=== PATIENT | female | born 1940 ===

== ENCOUNTER 2019-05-10 07:30 | Inpatient (IN) | payer MEDICARE ==
[~2019-05-10 07:30] MED LIST: Acetaminophen TAB* 325 MG PO ONE; Buffered Lidocaine 1% SYRIN* 1 ML/SYRINGE INTRADERM ONE; Famotidine IV* 10 MG/ML 2 ML (20 mg) IV ONE; Gabapentin CAP(*) 300 MG PO ONE; Lactated Ringers 1000 ML Bag* 1,000 ML IV SCH; Tranexamic Acid 1,000 MG in NS 0.9% 50 ML* (outpatient use) IV SCH; celeCOXIB CAP* 200 MG PO ONE
--- OUTSIDE RECORDS SUMMARY | 2019-05-10 11:44 | XMS REPORT | Continuity of Care Document ---
:1940 External Reference #:[id number] Author Name Tiffany Long M.D. (transmitted by agent of provider Patria Ann) Address [address] [place] [id number] Care Team Providers Name Role Phone lAan Lopez MD - Internal Medicine Care Team Information Game Agent Rambo Deluna MD - Family Care Team Information Game Agent Medicine Problems Active Problems Provider Date Hypothyroidism Onset: 08/13/2012 Blood chemistry abnormal Onset: 08/13/2012 Hemorrhage of rectum and anus Onset: 08/13/2012 Gynecologic examination Onset: 08/13/2012 Disorder of skin Onset: 08/13/2012 Localized, primary osteoarthritis Tiffany Long M.D. Onset: 04/01/2019 Social History Type Date Description Comments Sex Unknown ETOH Use Rarely consumes alcohol Tobacco Use Reviewed: 01/10/17 Patient has never smoked 10/07/14 Recreational Drug Use Denies Drug Use Smoking Status Reviewed: 04/01/19 Patient has never smoked 10/07/14 Exercise Type/Frequency Exercises regularly walks Allergies, Adverse Reactions, Alerts Description No Known Drug Allergies Medications Active Medications SIG Qnty Indications Ordering Provider Date Levothyroxine Sodium 1 by mouth 30tabs Rambo 06/30/2015 50mcg every day MD Regi Tablets Multi For Her once a day Unknown Tablets Aleve 1 tab by mouth Unknown 220mg Tablets as needed Ibuprofen 2 tabs by mouth Unknown 200mg Tablets as needed Aspirin Adult take 2 tabs by Unknown 325mg Tablets mouth as needed Immunizations CPT Code Status Date Vaccine Lot # [id number] Given 07/11/2018 Fluzone High Dose 65068 Given 07/03/2017 Fluzone High Dose 36635 Given 06/02/2016 Fluzone High Dose 77778 Given 06/24/2015 Pneumococcal Conjugate Vaccine 13 Valent For Intramuscular Use 43138 Given 06/24/2015 Fluzone High Dose 32981 Given 06/23/2014 Fluzone High Dose 11942 Given 06/20/2013 Fluzone High Dose 51299 Given 04/19/2012 Pneumonia Vaccine 99710 Given 04/19/2012 Fluzone High Dose Vital Signs Date Vital Result Comment 04/01/2019 1:32pm Height 57.50 inches 4'9.50" Weight 114.00 lb Heart Rate 78 /min BP Systolic 124 mmHg BP Diastolic 72 mmHg Respiratory Rate 12 /min Pain Level 4 BMI (Body Mass Index) 24.2 kg/m2 03/19/2019 11:34am Height 57.50 inches 4'9.50" Weight 115.00 lb Heart Rate 66 /min BP Systolic Sitting 132 mmHg BP Diastolic Sitting 86 mmHg Respiratory Rate 12 /min no resp difficulties Body Temperature 99.0 F Pain Level 4 O2 % BldC Oximetry 98 % BMI (Body Mass Index) 24.5 kg/m2 Results Description No Information Available Procedures Date Code Description Status 03/19/2019 84851 Rad Exam; Both Knees, Standing Ap Completed 07/25/2017 [id number] Mammogram Completed Medical Devices Description No Information Available Encounters Type Date Location Provider Dx Diagnosis Office Visit 03/19/2019 Orthopedic Ethan Clark, M17.12 Unilateral primary 11:30a [facility] AT [facility] left knee M17.11 Unilateral primary osteoarthritis, right knee M25.561 Pain in right knee M25.562 Pain in left knee Office Visit 11/08/2018 10:00a [employer] Primary THERESE Perez E03.9 Hypothyroidism, Care unspecified M19.90 Unspecified osteoarthritis, unspecified site Assessments Date Code Description Provider 04/01/2019 M17.0 Bilateral primary osteoarthritis of knee Tiffany Long M.D. 04/01/2019 M25.561 Pain in right knee Tiffany Long M.D. 04/01/2019 M25.562 Pain in left knee Tiffany Long M.D. 04/01/2019 M25.462 Effusion, left knee Tiffany Long M.D. 04/01/2019 M25.461 Effusion, right knee Tiffany Long M.D. 03/19/2019 M17.12 Unilateral primary osteoarthritis, left knee Ethan Clark MD 03/19/2019 M17.11 Unilateral primary osteoarthritis, right knee Ethan Clark MD 03/19/2019 M25.561 Pain in right knee Ethan Clark MD 03/19/2019 M25.562 Pain in left knee Ethan Clark MD 11/08/2018 E03.9 Hypothyroidism, unspecified THERESE Perez 11/08/2018 M19.90 Unspecified osteoarthritis, unspecified site THERESE Perez Plan of Treatment Future Appointment(s):04/29/2019 9:00 am - Tiffany Long M.D. at [facility]05/13/2019 9:00 am - THERESE Perez at [facility] Primary Care2018 - Tiffany Long M.D.M17.0 Bilateral primary osteoarthritis of kneeFollow up :Follow up: 7-10 days before sowhvdgN61.561 Pain in right kneeM25.562 Pain in left kneeM25.462 Effusion, left kneeM25.461 Effusion, right knee Functional Status Functional Condition Comment Date Status Bifocal glasses 01/29/2014 Active Partial upper dentures Active Mental Status Description No Information Available Referrals Description No Information Available
--- OUTSIDE RECORDS SUMMARY | 2019-05-10 11:44 | XMS REPORT | Continuity of Care Document ---
:1940 External Reference #:[id number] Author Name Tiffany Long M.D. (transmitted by agent of provider Patria Ann) Address [address] [place] [id number] Care Team Providers Name Role Phone Alan Lopez MD - Internal Medicine Care Team Information Balance Truing Inspector [phone] Rambo Deluna MD - Family Care Team Information Balance Truing Inspector Medicine Tiffany Long M.D. - Adult Care Team Information Balance Truing Inspector [phone] Reconstructive Orthopaedic Surgery Ethan Clark MD - Orthopaedic Care Team Information Balance Truing Inspector Surgery Rambo Ochoa MD - Ophthalmology Care Team Information Balance Truing Inspector Problems Active Problems Provider Date Hypothyroidism Onset: [...] Use Denies Drug Use Smoking Status Reviewed: 04/29/19 Patient has never smoked 10/07/14 Exercise Type/Frequency Exercises regularly walks Allergies, Adverse Reactions, Alerts Description No Known Drug Allergies Medications Active Medications SIG Qnty Indications Ordering Provider Date Levothyroxine Sodium 1 by mouth 30tabs Rambo 06/30/2015 50mcg every day MD Regi Tablets Multi For Her once a day Unknown Tablets Aleve 1 tab by mouth Unknown 220mg Tablets as needed Aspirin Adult take 2 tabs by Unknown 325mg Tablets mouth as needed Immunizations CPT Code Status Date Vaccine Lot # [id number] Given 07/11/2018 Fluzone High Dose 34486 Given 07/03/2017 Fluzone High Dose 84854 Given 06/02/2016 Fluzone High Dose 04726 Given 06/24/2015 Pneumococcal Conjugate Vaccine 13 Valent For Intramuscular Use 38620 Given 06/24/2015 Fluzone High Dose 82620 Given 06/23/2014 Fluzone High Dose 65028 Given 06/20/2013 Fluzone High Dose 81771 Given 04/19/2012 Pneumonia Vaccine 72776 Given 04/19/2012 Fluzone High Dose Vital Signs Date Vital Result Comment 04/29/2019 8:51am Height 58.6 inches 4'10.60" Weight 115.00 lb Heart Rate 78 /min BP Systolic 122 mmHg BP Diastolic 86 mmHg Respiratory Rate 16 /min Body Temperature 97.0 F Pain Level 4 BMI (Body Mass Index) 23.5 kg/m2 04/25/2019 10:01am Height 58.6 inches 4'10.60" Weight 114.31 lb BP Systolic Sitting 110 mmHg BP Diastolic Sitting 70 mmHg Respiratory Rate 12 /min Body Temperature 98.8 F BMI (Body Mass Index) 23.4 kg/m2 Results Test Date Facility Test Result H/L Range Note Basic Metabolic 04/25/2019 [facility] Sodium 140 mmol/L Normal 135-145 Panel [address] [place] [address] [phone] Potassium 4.8 mmol/L Normal 3.5-5.0 Chloride 104 mmol/L Normal 101-111 Co2 Carbon Dioxide 31 mmol/L Normal 22-32 Anion Gap 5 mmol/L Normal 2-11 Glucose 74 mg/dL Normal 70-100 Blood Urea Nitrogen 13 mg/dL Normal 6-24 Creatinine 0.85 mg/dL Normal 0.51-0.95 BUN/Creatinine Ratio 15.3 Normal 8-20 Calcium 9.9 mg/dL Normal 8.6-10.3 Egfr Non- 64.9 >60 Egfr 78.5 >60 1 CBC Auto 04/25/2019 [facility] White Blood 6.4 10^3/uL Normal 3.5-10.[address] [place] [address] [phone] Red Blood Count 4.93 10^6/uL High 3.70-4.87 Hemoglobin 14.8 g/dL Normal 12.0-16.0 Hematocrit 43 % Normal 35-47 Mean Corpuscular Volume 87 fL Normal 80-97 Mean Corpuscular Hemoglobin 30 pg Normal 27-31 Mean Corpuscular HGB Conc 35 g/dL Normal 31-36 Red Cell Distribution Width 14 % Normal 10-15 Platelet Count 210 10^3/uL Normal 150-450 Mean Platelet Volume 8.9 fL Normal 7.4-10.4 Abs Neutrophils 3.6 10^3/uL Normal 1.5-7.7 Abs Lymphocytes 2.1 10^3/uL Normal 1.0-4.8 Abs Monocytes 0.5 10^3/uL Normal 0-0.8 Abs Eosinophils 0.1 10^3/uL Normal 0-0.6 Abs Basophils 0.0 10^3/uL Normal 0-0.2 Abs Nucleated RBC 0.0 10^3/uL Granulocyte % 56.8 % Lymphocyte % 33.3 % Monocyte % 7.4 % Eosinophil % 2.1 % Basophil % 0.4 % Nucleated Red Blood Cells % 0.1 Inr/Protime 04/25/2019 [facility] Inr 0.97 Normal 0.82-1.[address] [place] [address] [phone] Laboratory test 04/25/2019 [facility] Partial 36.8 Normal 26.0 -38.[address] [place] [address] Time PTT [phone] Urine Culture 04/25/2019 [facility] Urine SEE RESULT 3, [address] Culture BELOW Sensitivities [place], [place] [id number] [phone] Order 04/25/2019 [employer] In-House EKG <pending> 1 Because ethnic data is not always readily available, this report includes an eGFR for both -Americans and non- Americans. The National Kidney Disease Education Program (NKDEP) does not endorse the use of the MDRD equation for patients that are not between the ages of 18 and 70, are , have extremes of body size, muscle mass, or nutritional status, or are non- or non-. According to the National Kidney Foundation, irrespective of diagnosis, the stage of the disease is based on the level of kidney function: Stage Description GFR(mL/min/1.73 m(2)) 1 Kidney damage with normal or decreased GFR 90 2 Kidney damage with mild decrease in GFR 60-89 3 Moderate decrease in GFR 30-59 4 Severe decrease in GFR 15-29 5 Kidney failure <15 (or dialysis) 2 Standard intensity warfarin therapeutic range: 2.0-3.0 High intensity warfarin therapeutic range: 2.5-3.5 3 [id number] 4 SEE RESULT BELOW Name: CANDY JUAREZ : [address]: Daphne SALEH Acct: [id number] Unit: [id number] AGE: 79 Location: [facility] Re04/25/19 SEX: F Status: REG REF SPEC: [id number] JANESSA: 04/25/19-[address]: Daphne SALEH REQ: [id number] RECD: 04/25/19334 STATUS: COMP _ SOURCE: URINE SPDESC: ORDERED: Urine Culture COMMENTS: [id number] Urine Source: Random Procedure Result Reported Site Urine Culture Final 04/27/19- 1200 ML Organism 1 STAPHYLOCOCCUS AUREUS [place] Count 10-25,000 (Moderate) CFU/ML Organism 2 NORMAL GENE [place] Count 1-10,000 (Few) CFU/ML 1. STAPHYLOCOCCUS AUREUS [facility] RX --------- ------ Penicillin >=0.5 R Gentamicin <=0.5 S Linezolid 2 S Nitrofurantoin <=16 S Oxacillin <=0.25 S * Quinupristin/Dalfopristin <=0.25 S Rifampin <=0.5 S Tetracycline <=1 S Doxycycline - Deduced S * Minocycline - Deduced S Trimethoprim/Sulfamethoxazole <=10 S Vancomycin 1 S Imipenem-Deduced S * Ampicillin/Sulbactam-Deduced S Cefazolin-Deduced S CONTINUED ON NEXT PAGE DEPARTMENT OF PATHOLOGY, [address] [place] [address] Emre Rojas M.D. Director ANTONIETA # [id number] Patient: CANDY JUAREZ [id number] (Continued) Specimen: [id number] Collected: 04/25/19 Received: 04/25/19 (Continued) Procedure Result Reported Site Urine Culture Final (continued) * These antibiotics are not available in the [facility] Formulary Contact the Microbiology Department for any additional antibiotic reporting. * ML - Main Lab . END OF REPORT DEPARTMENT OF PATHOLOGY, [address] [place] [address] Emre Rojas M.D. Director [facility] # [id number] Procedures Date Code Description Status 04/25/2019 42457 EKG Tracing & Interpretation Completed 03/19/2019 91502 Rad Exam; Both Knees, Standing Ap Completed 07/25/2017 [id number] Mammogram Completed Medical Devices Description No Information Available Encounters Type Date Location Provider Dx Diagnosis Office Visit 04/01/2019 Orthopedic Tiffany Long, M17.0 Bilateral primary 1:30p Services Of [facility] Patrick osteoarthritis of knee M25.561 Pain in right knee M25.562 Pain in left knee M25.462 Effusion, left knee M25.461 Effusion, right knee Office Visit 03/19/2019 Orthopedic Ethan Caceres M17.12 Unilateral primary 11:30a Services Of Montse Clark MD osteoarthritis, left AT [place] knee M17.11 Unilateral primary osteoarthritis, right knee M25.561 Pain in right knee M25.562 Pain in left knee Office Visit 11/08/2018 10:00a [employer] Primary THERESE Perez E03.9 Hypothyroidism, Care unspecified M19.90 Unspecified osteoarthritis, unspecified site Assessments Date Code Description Provider 04/29/2019 Z01.818 Encounter for other preprocedural examination Tiffany Long M.D. 04/29/2019 M17.0 Bilateral primary osteoarthritis of knee Tiffany Long M.D. 04/29/2019 M25.562 Pain in left knee Tiffany Long M.D. 04/29/2019 M25.462 Effusion, left knee Tiffany Long M.D. 04/25/2019 Z01.818 Encounter for other preprocedural examination THEERSE Perez 04/25/2019 M17.0 Bilateral primary osteoarthritis of knee THERESE Perez 04/25/2019 M25.562 Pain in left knee THERESE Perez 04/25/2019 M25.462 Effusion, left knee THERESE Perez 04/25/2019 E03.9 Hypothyroidism, unspecified THERESE Perez 04/01/2019 M17.0 Bilateral primary osteoarthritis of knee [...] site THERESE Perez Plan of Treatment Future Appointment(s):08/26/2019 9:00 am - THERESE Perez at [facility] 7:30 am - Tom Alaniz PA-C at [facility]2018 7:30 am - Tiffany Long M.D. at [facility]04/29/2019 - Tiffany Long M.D.Z01.818 Encounter for other preprocedural xwweaycjjwcH01.0 Bilateral primary osteoarthritis of kneeM25.562 Pain in left kneeFollow up: Follow up: to the ORM25.462 Effusion, left knee Functional Status Functional Condition Comment Date Status Bifocal glasses 01/29/2014 Active Partial upper dentures Active Mental Status Description No Information Available Referrals Description No Information Available
--- OUTSIDE RECORDS SUMMARY | 2019-05-10 11:44 | XMS REPORT | Continuity of Care Document ---
:1940 External Reference #:[id number] Author Name Alfredo Kendrick Care Team Providers Name Role Phone Rambo Deluna MD Care Team Information Doctor Assistant Unavailable Payers Date Identification Numbers Payment Provider Subscriber Policy Number: [id number] [employer] Evangelina Rodriguez PayID: [id number] [address] [address] Attn: [place] [address] Effective: 2013 Policy Number: [id number] [employer] Evangelina Rodriguez Expires: 2019 Group Name: Medicare [address] [address] PayID: [id number] Attn: [place] [address] Problems Active Problems Provider Date Hypothyroidism Onset: 08/13/2012 Blood chemistry abnormal Onset: 08/13/2012 Hemorrhage of rectum and anus Onset: 08/13/2012 Gynecologic examination Onset: 08/13/2012 Disorder of skin Onset: 08/13/2012 Family History Date Family Member(s) Observation Comments Father due to MvA () Mother due to Natural Causes () Social History Type Date Description Comments Sex Unknown Marital Status Lives With Alone Pets 2 dogs Occupation Retired Hand Dominance Left-handed ETOH Use Rarely consumes alcohol Tobacco Use Reviewed: 01/10/17 Patient has never smoked 10/07/14 Recreational Drug Use Denies Drug Use Smoking Status Reviewed: 11/08/18 Patient has never smoked 10/07/14 Exercise Type/Frequency [...] by Unknown 325mg Tablets mouth as needed History Medications Amoxicillin 1 by mouth twice 20tabs J06.9 Rambo 06/18/2018 - 875mg a day MD Regi 07/11/2018 Tablets Fluconazole 1 by mouth every 1tabs B37.9 Rambo 04/30/2018 - 150mg day MD Regi 06/18/2018 Tablets Clotrimazole/Betamet apply two 15units L30.9 Rambo 10/31/2017 - hasone Dipropionate timesdaily as MD Regi 06/18/2018 directed 1-0.05% Cream Azithromycin 2 tablets day 6tabs J01.90 Rambo 01/10/2017 - 250mg one then one MD Regi 07/03/2017 Tablets tablet day2 thru day 5 Levothyroxine Sodium take 1 tablet by 30tabs Rambo 12/20/2012 - mouth once daily MD Regi 06/30/2015 25mcg Tablets Synthroid 1 po qd 30tabs 244.8 Rambo 04/19/2012 - 25mcg MD Regi 06/20/2013 Tablets Tobramycin-Dexametha place 1 drop Unknown - sone into right eye 10/21/2015 0.3-0.1% four times a day Suspension Erythromycin Apply Thin Strip Unknown - 5mg/GM To ALL Four 10/21/2015 Ointment Eyelid Margins Every Night AT Bedtime Immunizations CPT Code Status Date Vaccine Lot # [id number] Given 07/11/2018 Fluzone High Dose 35315 Given 07/03/2017 Fluzone High Dose 84836 Given 06/02/2016 Fluzone High Dose 10409 Given 06/24/2015 Pneumococcal Conjugate Vaccine 13 Valent For Intramuscular Use 06771 Given 06/24/2015 Fluzone High Dose 22222 Given 06/23/2014 Fluzone High Dose 32645 Given 06/20/2013 Fluzone High Dose 65185 Given 04/19/2012 Pneumonia Vaccine 83190 Given 04/19/2012 Fluzone High Dose Vital Signs Date Vital Result Comment 03/19/2019 11:34am Height 57.50 inches 4'9.50" Weight 115.00 lb Heart Rate 66 /min BP Systolic Sitting 132 mmHg BP Diastolic Sitting 86 mmHg Respiratory Rate 12 /min no resp difficulties Body Temperature 99.0 F Pain Level 4 O2 % BldC Oximetry 98 % BMI (Body Mass Index) 24.5 kg/m2 11/08/2018 10:05am Weight 115.00 lb BP Systolic Sitting 90 mmHg BP Diastolic Sitting 40 mmHg 07/11/2018 10:28am Weight 115.00 lb 06/18/2018 10:18am Weight 115.00 lb Heart Rate 72 /min BP Systolic 90 mmHg BP Diastolic 60 mmHg Body Temperature 97.2 F 04/30/2018 1:48pm Weight 114.00 lb BP Systolic 100 mmHg BP Diastolic 48 mmHg 10/31/2017 9:00am Weight 114.00 lb BP Systolic 100 mmHg BP Diastolic 50 mmHg 07/03/2017 1:09pm Height 58.6 inches Weight 113.00 lb BP Systolic 102 mmHg BP Diastolic 50 mmHg BMI (Body Mass Index) 23.1 kg/m2 01/10/2017 1:53pm Weight 112.00 lb BP Systolic 100 mmHg BP Diastolic 50 mmHg 06/29/2016 1:22pm Height 58 inches Weight 107.00 lb BP Systolic 90 mmHg BP Diastolic 40 mmHg Respiratory Rate 12 /min Body Temperature 97.8 F BMI (Body Mass Index) 22.4 kg/m2 06/02/2016 1:07pm Weight 108.00 lb 02/22/2016 1:11pm Weight 104.00 lb BP Systolic 90 mmHg BP Diastolic 40 mmHg 10/21/2015 12:57pm Weight 108.00 lb BP Systolic 112 mmHg BP Diastolic 70 mmHg 08/18/2015 1:28pm Height 58.6 inches Weight 110.00 lb Heart Rate 70 /min Respiratory Rate 12 /min Body Temperature 98.6 F BMI (Body Mass Index) 22.5 kg/m2 06/24/2015 1:27pm Height 59 inches Weight 110.00 lb Heart Rate 70 /min BP Systolic 130 mmHg BP Diastolic 80 mmHg Respiratory Rate 12 /min Body Temperature 98.8 F BMI (Body Mass Index) 22.2 kg/m2 02/03/2015 1:03pm Weight 114.00 lb BP Systolic 106 mmHg BP Diastolic 70 mmHg 10/07/2014 1:08pm Weight 115.00 lb BP Systolic 108 mmHg BP Diastolic 50 mmHg 06/23/2014 1:33pm Height 58.6 inches Weight 113.00 lb Heart Rate 70 /min BP Systolic 110 mmHg BP Diastolic 68 mmHg Respiratory Rate 12 /min Body Temperature 98.8 F BMI (Body Mass Index) 23.1 kg/m2 01/29/2014 1:03pm Weight 119.00 lb BP Systolic 110 mmHg BP Diastolic 70 mmHg 10/01/2013 1:00pm Height 59 inches Weight 113.00 lb BP Systolic 120 mmHg BP Diastolic 70 mmHg BMI (Body Mass Index) 22.8 kg/m2 06/20/2013 1:07pm Height 59 inches Weight 116.00 lb Heart Rate 60 /min BP Systolic 124 mmHg BP Diastolic 70 mmHg Body Temperature 98.8 F BMI (Body Mass Index) 23.4 kg/m2 12/18/2012 1:16pm Weight 118.00 lb BP Systolic 118 mmHg BP Diastolic 78 mmHg 06/20/2012 1:14pm Height 58 inches Weight 122.00 lb BP Systolic 120 mmHg BP Diastolic 70 mmHg BMI (Body Mass Index) 25.5 kg/m2 04/19/2012 2:02pm Height 58 inches Weight 118.00 lb Heart Rate 78 /min BP Systolic 120 mmHg BP Diastolic 80 mmHg Respiratory Rate 16 /min Body Temperature 98.8 F BMI (Body Mass Index) 24.7 kg/m2 03/26/2012 2:00pm Height 57.6 inches Weight 119.00 lb Heart Rate 770 /min BP Systolic 120 mmHg BP Diastolic 80 mmHg BMI (Body Mass Index) 25.2 kg/m2 Results Test Date Facility Test Result H/L Range Note Laboratory test 07/04/2017 N2N/CCD Import TSH (Thyroid 1.99 0.34-5.6 finding Stimulating mcIU/mL Horm) Basic Metabolic 07/04/2017 N2N/CCD Import Anion Gap 7 mmol/L 2-11 Panel BUN/Creatinine Ratio 16.7 1 8-20 Blood Urea Nitrogen 13 mg/dL 6-24 Calcium 9.7 mg/dL 8.6-10.3 Chloride 102 mmol/L 101-111 Co2 Carbon Dioxide 31 mmol/L 22-32 Creatinine 0.78 mg/dL 0.51-0.95 Egfr 92.6 1 1 Egfr Non- 72.0 1 Glucose 90 mg/dL 70-100 Potassium 3.8 mmol/L 3.5-5 Sodium 140 mmol/L 133-145 Laboratory test 02/24/2016 N2N/CCD Import TSH Reflex FT4 1.96 uIU/mL 0.3 -4.2 2 finding and/or FT3 Laboratory test 08/03/2015 N2N/CCD Import TSH Reflex FT4 0.37 uIU/mL 0.36-3.74 3 finding and/or FT3 Laboratory test 06/26/2015 N2N/CCD Import Free T3 2.78 pg/mL 2.18-3.98 finding Free T4 1.11 ng/dL 0.76-1.46 TSH Reflex FT4 and/or FT3 3.84 uIU/mL High 0.36-3.74 4 Basic Metabolic Panel 06/26/2015 N2N/CCD Import Anion Gap 7 mEq/L Low 8- 16 BUN 12 mg/dL 7-18 BUN/Creat 15.0 ratio Calcium 9.5 mg/dL 8.5-10.1 Carbon Dioxide 30 mmol/L 21-32 Chloride 106 mmol/L 98-107 Creatinine 0.8 mg/dL 0.6-1.3 Glom Filtration Rate, Estimate >60 mL/min Glucose 91 mg/dL 74-106 If >60 mL/min 5 Potassium 3.8 mmol/L 3.5-5.1 Sodium 143 mmol/L 136-145 Laboratory test 06/24/2015 N2N/CCD Import Cytology See Result 6 finding Interface Order Below Laboratory test 06/16/2014 N2N/CCD Import TSH Reflex FT4 3.23 uIU/mL 0.36-3. 7 finding and/or FT3 74 Basic Metabolic 06/16/2014 N2N/CCD Import Anion Gap 6 mEq/L Low 8-16 Panel BUN 12 mg/dL 7-18 BUN/Creat 12.0 ratio Calcium 9.5 mg/dL 8.5-10.1 Carbon Dioxide 32 mmol/L 21-32 Chloride 108 mmol/L High 98-107 Creatinine 1.0 mg/dL 0.6-1.3 Glom Filtration Rate, Estimate 58 mL/min Glucose 85 mg/dL 74-106 If >60 mL/min 8 Potassium 5.0 mmol/L 3.5-5.1 Sodium 141 mmol/L 136-145 Laboratory test 09/25/2013 N2N/CCD Import Vitamin 60.4 ng/mL 30-100 9 finding D,25-Hydroxy Laboratory test 05/28/2013 N2N/CCD Import TSH Reflex FT4 3.42 uIU/mL 0.49-4.67 10 finding and/or FT3 Vitamin D,25-Hydroxy 24.9 ng/mL Low 30-100 11 Basic Metabolic Panel 05/28/2013 N2N/CCD Import Anion Gap 9 mEq/L 8-16 BUN 16 mg/dL 5-23 BUN/Creat 17.7 ratio Calcium 9.1 mg/dL 8.5-10.1 Carbon Dioxide 31 mEq/L High 18-29 Chloride 104 mmol/L 98-107 Creatinine 0.9 mg/dL 0.5-1.4 Glom Filtration Rate, Estimate >60 mL/min Glucose 84 mg/dL 76-115 If >60 mL/min 12 Potassium 4.3 mmol/L 3.5-5.1 Sodium 140 mmol/L 136-145 LDL Cholesterol 05/28/2013 N2N/CCD Import Cholesterol 206 mg/dL High 120- 200 Profile HDL Cholesterol 57 mg/dL 29-83 LDL-Cholesterol 131 mg/dL 62-185 Triglycerides 90 mg/dL 16-231 Liver Function Tests 05/28/2013 N2N/CCD Import Alb/Glob 1.3 ratio Albumin 4.0 g/dL 3.5-5 Alkaline Phosphatase 98 U/L 50-136 Bilirubin,Direct 0.1 mg/dL 0.1-0.4 Bilirubin,Indirect 0.4 mg/dL 0-0.9 Bilirubin,Total 0.5 mg/dL 0.2-1.2 Globulin 3.0 g/dL 1.9-4.3 SGPT/Alt 26 U/L Low 30-65 Sgot/Ast 16 U/L 16-40 Total Protein 7.0 g/dL 6.3-8 Laboratory test 09/28/2012 N2N/CCD Import Polyp Colon See Note 13 finding And/Or Rectum Laboratory test 06/19/2012 N2N/CCD Import TSH Reflex FT4 2.80 uIU/mL 0.49-4.6 14 finding and/or FT3 7 Vitamin D,25-Hydroxy 34.7 ng/mL 30-100 15 Laboratory test 04/19/2012 N2N/CCD Import ThinPrep Pap: See Note 16 finding Cervix/Endocx Laboratory test 03/27/2012 N2N/CCD Import Free T4 0.92 ng/dL 0.71-1. finding 85 TSH Reflex FT4 and/or FT3 5.71 uIU/mL High 0.49-4.67 17 Vitamin D,25-Hydroxy 25.5 ng/mL Low 30-100 18 Basic Metabolic Panel 03/27/2012 N2N/CCD Import Anion Gap 12 mEq/L 8-16 BUN 13 mg/dL 5-23 BUN/Creat 14.4 ratio Calcium 9.5 mg/dL 8.5-10.1 Carbon Dioxide 29 mEq/L 18-29 Chloride 106 mmol/L 98-107 Creatinine 0.9 mg/dL 0.5-1.4 Glom Filtration Rate, Estimate >60 mL/min Glucose 94 mg/dL 76-115 If >60 mL/min 19 Potassium 4.5 mmol/L 3.5-5.1 Sodium 142 mmol/L 136-145 CBS W/Automated Diff 03/27/2012 N2N/CCD Import Bas% 0.3 % 0-1.1 Baso # 0.02 K/uL 0-0.1 Eo% 2.1 % 0-6.6 Eos # 0.13 K/uL 0-0.5 Hematocrit 43.0 % 36-46.1 Hemoglobin 14.8 gm/dL 11.6-15.8 Lymph # 2.77 K/uL 0.8-3.4 Lymph % 43.9 % 17-46.1 Mean Cell Volume 88.1 fl 80.9-99 Mean Corpuscular HGB 30.3 pg 25.9-32.7 Mean Corpuscular HGB Conc 34.4 g/dL High 30.8-34.3 Mean Platelet Volume 10.4 fL 8.9-12.4 Nicholas # 0.39 K/uL 0.3-0.9 Nicholas % 6.2 % 4.3-13.2 Neut# 3.00 K/uL 1-7 Neut% 47.5 % 40.4-72.8 Platelet Count 193 K/uL 155-360 Red Blood Count 4.88 M/uL 3.9-5.4 Red Cell Distri Width %CV 12.8 % 11.7-14.4 Red Cell Distri Width SD 40.8 fl 3-47 White Blood Count 6.3 K/uL 3.1-10.7 LDL Cholesterol Profile 03/27/2012 N2N/CCD Import Cholesterol 188 mg/dL 120-200 HDL Cholesterol 59 mg/dL 29-83 LDL-Cholesterol 112 mg/dL 62-185 Triglycerides 83 mg/dL 16-231 Liver Function Tests 03/27/2012 N2N/CCD Import Alb/Glob 1.2 ratio Albumin 4.1 g/dL 3.5-5 Alkaline Phosphatase 72 U/L 50-136 Bilirubin,Direct 0.1 mg/dL 0.1-0.4 Bilirubin,Indirect 0.5 mg/dL 0-0.9 Bilirubin,Total 0.6 mg/dL 0.2-1.2 Globulin 3.5 g/dL 1.9-4.3 SGPT/Alt 27 U/L Low 30-65 Sgot/Ast 16 U/L 16-40 Total Protein 7.6 g/dL 6.3-8 1 Because ethnic data is not always [...] 5 Kidney failure <15 (or dialysis) 2 QUERY: Reflex add FT3? N QUERY: Reflex add FT4? Y 3 QUERY: Reflex add FT3? Y QUERY: Reflex add FT4? Y 4 QUERY: Reflex add FT3? Y QUERY: Reflex add FT4? Y 5 Note: Persistent reduction for 3 months or more in an eGFR <60 mL/min/1.73 m2 defines CKD. Patients with eGFR values >/=60 mL/min/1.73 m2 may also have CKD if evidence of persistent proteinuria is present. The original MDRD equation for estimated GFR is not valid for patients less than 18 years of age. Additional information may be found at www.kdoqi.org. 6 SEE RESULT BELOW Name: CANDY RODRIGUEZ : [address]: Daphne SALEH Acct: [id number] Unit: [id number] AGE: 75 Location: [facility] Re06/24/15 SEX: F Status: REG REF SPEC: [id number] JANESSA: 06/24/15-[address] [facility] [address]: Daphne SALEH REQ: [id number] RECD: 06/25/15 STATUS: AUGIE FLEMING DR: PSYCHIATRIC, Lab _ ORDERED: IMAGE ANALYSIS FINAL DIAGNOSIS Negative for Intraepithelial lesion or Malignancy A. Ectocervical/Endocervical Specimen Adequacy: Satisfactory of evaluation Transformation zone component identified Patient Information: HPV: Thin Layer Pap Test w/reflex to high risk HPV RNA testing when ASCUS Actual Specimen Date: 06/24/15 ?: N Post Menopausal?: Y Hysterectomy?: N Previous Abnormal Pap Smears?:N Signed (signature on file) Bibi Liang 06/26/15 1238 This Pap test was evaluated with the assistance of the FarfetchPrep Test Imaging System. Due to cytologic findings at the traffic warehouse supervisor microscope, comprehensive manual rescreening by a Patient Observer may be required. The Pap Smear is a screening test designed to aid in the detection of premalignant and malignant conditions of the uterine cervix. It is not a diagnostic procedure and should not be used as the sole means of detecting cervical cancer. Both false- positive and false- negative reports do occur. Depending on your risk status, a Pap smear should be obtained and evaluated every 1-3 years. END OF REPORT * ML = Testing performed at Main Lab DEPARTMENT OF PATHOLOGY, [address] [place] [address] Emre Rojas M.D. Director [facility] # [id number] QUERY: Reflex add FT3? QUERY: Reflex add FT4? Y 8 Note: Persistent reduction for 3 months or more in an eGFR <60 mL/min/1.73 m2 defines CKD. Patients with eGFR values >/=60 mL/min/1.73 m2 may also have CKD if evidence of persistent proteinuria is present. The original MDRD equation for estimated GFR is not valid for patients less than 18 years of age. Additional information may be found at www.kdoqi.org. 9 Vitamin D deficiency has been defined by the [place] of [employer] and an Endocrine Society practice guideline as a level of serum 25-OH vitamin D less than 20 ng/mL (1,2). The Endocrine Society went on to further define vitamin D insufficiency as a level between 21 and 29 ng/mL (2). 1. IOM ([place] [employer]). 2010. Dietary reference intakes for calcium and D. [place]: The National Academies Press. 2. Emil MF, True NC, Rafaela-Damien WERNER, et al. Evaluation, treatment, and prevention of vitamin D deficiency: an Endocrine Society clinical practice guideline. JCEM. 2010; 96(7):1911-30. Performed at: RN - [facility] [address] [id number] Web Engineer: Heidi Alvares MD, Phone: [phone] QUERY: Reflex add FT3? QUERY: Reflex add FT4? Y 11 Vitamin D deficiency has been defined by the [place] [employer] and an Endocrine Society practice guideline as a level of serum 25-OH vitamin D less than 20 ng/mL (1,2). The Endocrine Society went on to further define vitamin D insufficiency as a level between 21 and 29 ng/mL (2). 1. IOM ([place] [employer]). 2010. Dietary reference intakes for calcium and D. [place]: The National Academies Press. 2. Emil MF, True DOLAN, Cruzito WERNER, et al. Evaluation, treatment, and prevention of vitamin D deficiency: an Endocrine Society clinical practice guideline. JCEM. 2010; 96(7):1911-30. Performed at: - [facility] [id number] Web Engineer: Heidi Alvares MD, Phone: [phone] Note: Persistent reduction for 3 months or more in an eGFR <60 mL/min/1.73 m2 defines CKD. Patients with eGFR values >/=60 mL/min/1.73 m2 may also have CKD if evidence of persistent proteinuria is present. The original MDRD equation for estimated GFR is not valid for patients less than 18 years of age. Additional information may be found at www.kdoqi.org. 13 OPERATION/PROCEDURE Colonoscopy DIAGNOSIS: "RECTUM, POLYPECTOMY": HYPERPLASTIC POLYP. MIRTHA/hugo GROSS "RECTAL POLYP". The specimen is received in an appropriately labeled container. This contains one rounded hickman colored piece of soft tissue measuring up to 0.2 cm. ; filtered and submitted in toto within a single cassette. WS/clf MICROSCOPIC Sections show colonic mucosa lined by an increased number of goblet cells. The glands have a serrated, saw tooth appearance. The nuclei are bland, and basal. PRE OPERATIVE DIAGNOSIS Rectal bleed REVIEW CODE CODE: I Signed JANE ESQUEDA MD 1456 14 QUERY: Add FT3 if TSH abnormal? FT3 N QUERY: Add FT4 if TSH Abnormal? FT4 Y 15 Vitamin D deficiency has been defined by the [place] [employer] and an Endocrine Society practice guideline as a level of serum 25-OH vitamin D less than 20 ng/mL (1,2). The Endocrine Society went on to further define vitamin D insufficiency as a level between 21 and 29 ng/mL (2). 1. IOM ([place] [employer]). 2010. Dietary reference intakes for calcium and D. [place]: The National Academies Press. 2. Emil MF, True [place], Cruzito WERNER, et al. Evaluation, treatment, and prevention of vitamin D deficiency: an Endocrine Society clinical practice guideline. JCEM. 2011 Feb; 96(7):1911-30. 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 PAP ACCESSI QUESTIONNAIRE 08/23 PERTINENT CLINICAL HISTORY FOR PAP (RADAR ENGINEERING TEACHER) CYTOLOGY (Check all that apply): ? N Post ? N Menopause? Y LMP date: AGE 48 Last Pap: at PSYCHIATRIC? N Abnormal Pap? N If Yes, date: Post Hysterectomy? N Is cervix present? Y If patient had related surgical procedure: Related Therapy: Call Center Support Representative Patient Number: [id number] Significant Clinical History: V76.2 DISCLAIMER: The Pap smear is a screening test and not a diagnostic procedure. False negative and false positive results can and do occur for a number of reasons. Regular screening provides an aid in detecting treatable cervical abnormalities, but should not be used as the only means for detecting cervical dysplasia and carcinoma. JANE Quarles MD 1451 17 QUERY: Add FT3 if TSH abnormal? FT3 N QUERY: Add FT4 if TSH Abnormal? FT4 Y 18 Vitamin D deficiency has been defined by the [place] [employer] and an Endocrine Society practice guideline as a level of serum 25-OH vitamin D less than 20 ng/mL (1,2). The Endocrine Society went on to further define vitamin D insufficiency as a level between 21 and 29 ng/mL (2). 1. IOM ([place]). 2010. Dietary reference intakes for calcium and D. [place]: The National Academies Press. 2. Emil BROWN, True DOLAN, Cruzito WERNER, et al. Evaluation, treatment, and prevention of vitamin D deficiency: an Endocrine Society clinical practice guideline. JCEM. 2010; 96(7):1911-30. Performed at: RN - [facility] [address] [id number] Web Engineer: Heidi Alvares MD, Phone: [phone] Note: Persistent reduction for 3 months or more in an eGFR <60 mL/min/1.73 m2 defines CKD. Patients with eGFR values >/=60 mL/min/1.73 m2 may also have CKD if evidence of persistent proteinuria is present. The original MDRD equation for estimated GFR is not valid for patients less than 18 years of age. Additional information may be found at www.kdoqi.org. Procedures Date Code Description Status 07/25/2017 21416 Bone Density Study, Single Photon Absorptiometry Completed 07/25/2017 94016 Mammography Unilateral Completed 07/25/2017 [id number] Mammogram Completed 06/24/2015 60062 Pure Tone Hearing Test, Air Completed 06/20/2013 53796 Pure Tone-Air Condition Only Completed 04/25/2012 19279 Mammography Unilateral Completed 04/19/2012 96579 Screening Vision Test Completed 04/19/2012 02375 EKG Tracing & Interpretation Completed 03/26/2012 51179 Anoscopy Completed Encounters Type Date Location Provider Dx Diagnosis Office Visit 11/08/2018 [facility] THERESE Perez E03.9 Hypothyroidism, 10:00a unspecified M19.90 Unspecified osteoarthritis, unspecified site Plan of Treatment Future Appointment(s):04/01/2019 1:30 pm - Tiffany Long M.D. at [facility]05/13/2019 9:00 am - THERESE Perez at [facility]2018 - Ethan Clark, MDM17.12 Unilateral primary osteoarthritis, left kneeFollow up:Follow up: Ethan for TKAM17.11 Unilateral primary osteoarthritis , right knee
--- OUTSIDE RECORDS SUMMARY | 2019-05-10 11:44 | XMS REPORT | Continuity of Care Document ---
:1940 External Reference #:[id number] Author Name THERESE Perez (transmitted by agent of provider Viridiana Barone) Address [address] [place] [address] Care Team Providers Name Role Phone Alan Lopez MD - Internal Medicine Care Team Information Stockroom Associate Rambo Deluna MD - Family Care Team Information Stockroom Associate Medicine Tiffany Long M.D. - Adult Care Team Information Stockroom Associate [phone] Reconstructive Orthopaedic Surgery Ethan Clark MD - Orthopaedic Care Team Information Stockroom Associate [phone] Surgery Rambo Ochoa MD - Ophthalmology Care Team Information Stockroom Associate Problems Active Problems Provider Date Hypothyroidism Onset: [...] Use Denies Drug Use Smoking Status Reviewed: 04/25/19 Patient has never smoked 10/07/14 Exercise Type/Frequency [...] CPT Code Status Date Vaccine Lot # [id number] Given 07/11/2018 Fluzone High Dose 85424 Given 07/03/2017 Fluzone High Dose 60943 Given 06/02/2016 Fluzone High Dose 46766 Given 06/24/2015 Pneumococcal Conjugate Vaccine 13 Valent For Intramuscular Use 98846 Given 06/24/2015 Fluzone High Dose 79030 Given 06/23/2014 Fluzone High Dose 96741 Given 06/20/2013 Fluzone High Dose 80357 Given 04/19/2012 Pneumonia Vaccine 44965 Given 04/19/2012 Fluzone High Dose Vital Signs Date Vital Result Comment 04/25/2019 10:01am Height 58.6 inches 4'10.60" Weight 114.31 lb BP Systolic Sitting 110 mmHg BP Diastolic Sitting 70 mmHg Respiratory Rate 12 /min Body Temperature 98.8 F BMI (Body Mass Index) 23.4 kg/m2 04/01/2019 1:32pm Height 57.50 inches 4'9.50" Weight 114.00 lb Heart Rate 78 /min BP Systolic 124 mmHg BP Diastolic 72 mmHg Respiratory Rate 12 /min Pain Level 4 BMI (Body Mass Index) 24.2 kg/m2 Results Description No Information Available Procedures Date Code Description Status 03/19/2019 86085 Rad Exam; Both Knees, Standing Ap Completed 07/25/2017 [id number] Mammogram Completed Medical Devices Description No Information Available Encounters Type Date Location Provider Dx Diagnosis Office Visit 04/01/2019 Orthopedic Tiffany Long M17.0 Bilateral primary 1:30p [facility] osteoarthritis of knee M25.561 Pain in right knee M25.562 Pain in left knee M25.462 Effusion, left knee M25.461 Effusion, right knee Office Visit 03/19/2019 Orthopedic Ethan Caceres M17.12 Unilateral primary 11:30a [facility] Clark MD osteoarthritis, left AT [place] knee M17.11 Unilateral primary osteoarthritis, right knee M25.561 Pain in right knee M25.562 Pain in left knee Office Visit 11/08/2018 10:00a [facility] Primary THERESE Perez E03.9 Hypothyroidism, Care unspecified M19.90 Unspecified osteoarthritis, unspecified site Assessments Date Code Description Provider 04/25/2019 Z01.818 Encounter for other preprocedural examination THERESE Perez 04/25/2019 M17.0 Bilateral primary osteoarthritis of [...] Appointment(s):08/26/2019 9:00 am - THERESE Perez at [facility] 7:30 am - Tom Alaniz PA-C at [facility]2018 7:30 am - Tiffany Long M.D. at [facility]04/29/2019 9 :00 am - Tiffany Long M.D. at [facility]04/25/2019 - Daphne Hernández, PAZ01.818 Encounter for other preprocedural examinationNew Labs:Basic Metabolic Panel, Ordered: 04/25/19CBC Auto Diff, Ordered: 04/25/19Inr/Protime, Ordered: 04/25/19Partial Thrombo Time PTT, Ordered: 04/25/19Urine Culture And Sensitivities, Ordered: 04/25/19M17.0 Bilateral primary osteoarthritis of kneeM25.562 Pain in left kneeM25.462 Effusion, left kneeE03.9 Hypothyroidism, unspecified Functional Status Functional Condition Comment Date Status Bifocal glasses 01/29/2014 Active Partial upper dentures Active Mental Status Description No Information Available Referrals Description No Information Available
[2019-05-10] MEDS ORDERED: Acetaminophen TAB* 325 MG ONE (11:59)
[2019-05-10] MEDS ORDERED: ceFAZolin 2 GM in NS PREMIX(*) 2 GM/100 ML BAG IVPB ONE (11:59)
[2019-05-10] MEDS ORDERED: celeCOXIB CAP* 200 MG ONE (11:59)
[2019-05-10] MEDS ORDERED: Famotidine IV* 10 MG/ML 2 ML (20 mg) ONE (11:59)
[2019-05-10] MEDS ORDERED: Buffered Lidocaine 1% SYRIN* 1 ML/SYRINGE INTRADERM ONE (11:59)
[2019-05-10] MEDS ORDERED: Gabapentin CAP(*) 300 MG ONE (11:59)
[2019-05-10] MEDS ORDERED: KETAMINE HCL* 50 MG/ML 10 ML VIAL ONE (12:49)
[2019-05-10] MEDS ORDERED: Lidocaine 2% PF * 5 ML VIAL ONE (12:49)
[2019-05-10] MEDS ORDERED: fentaNYL* 50 MCG/ML 2 ML VIAL (100 MCG VIAL) ONE (12:49)
[2019-05-10] MEDS ORDERED: Midazolam* 1 MG/ML 10 ML VIAL (10 MG) ONE (12:49)
[2019-05-10] MEDS ORDERED: Propofol* 10 MG/ML 20 ML BTL ONE ×2 (12:49→14:43)
[2019-05-10] MEDS ORDERED: ROPIVACAINE 5 MG/ML 30 ML BTL (0.5%) ONE ×2 (12:49→14:14)
[2019-05-10] MEDS ORDERED: Ondansetron INJ* 2 MG/ML VIAL ONE (12:49)
[2019-05-10] MEDS ORDERED: Dexamethasone IV* 4 MG/ML 1 ML (4 MG) ONE (12:49)
[2019-05-10] MEDS ORDERED: HYDROmorphone INJ1* 1 MG/ML SYRINGE ONE (13:02)
[2019-05-10] MEDS ORDERED: Bupivacaine 0.5% SDV PF* 30ML VIAL ONE (14:22)
[2019-05-10] MEDS ORDERED: Phenylephrine 10 MG/ML VIAL* 1 ML VIAL ONE (14:58)
[2019-05-10] MEDS ORDERED: EPHEDrine (Pressors)* 50 MG/ML VIAL ONE (15:01)
[2019-05-10] MEDS ORDERED: Ondansetron INJ* 2 MG/ML VIAL IV PRN ×2 (16:06→16:53)
[2019-05-10] MEDS ORDERED: fentaNYL* 50 MCG/ML 2 ML VIAL (100 MCG VIAL) IV PRN (16:06)
[2019-05-10] MEDS ORDERED: Naloxone* 0.4 MG/ML 1 ML VIAL IV PRN (16:06)
--- NOTE | 2019-05-10 16:32 | OP ---
Operative Report - Blank - Operative Report Date of Operation: 05/10/19 Note: JASSON JUAREZ 1940 Date of Surgery: 05/10/19 Tiffany Long MD Financial Systems Analyst: Nick SALEH did help throughout the procedure with preparation of the knee, wound retraction, manipulation of the knee, and wound closure. Anesthesiologist: Orlando Rodríguez MD Anesthesia Type: Spinal Preoperative Diagnosis: Left severe degenerative osteoarthritis of the knee Postoperative Diagnosis: As above Procedure Performed: Left Total Knee Arthroplasty Tourniquet time: 48 minutes Complications: None Specimen: Bone and cartilage from the left knee joint sent to pathology. Hardware Used: Cemented [employer] Nephew total knee hardware was used - For the femur a size 4 narrow left legion posterior stabilized femoral component, for the tibia a size 3 left dom II tibial baseplate, for the insert a size 11mm 3-4 posterior stabilized articular polyethylene insert, and for the patella a size 32 3-peg all poly patella. Brief History/Indication: JASSON JUAREZ was known in clinic and had a history of severe left knee pain and swelling. She failed conservative treatment with anti-inflammatories, pain pills, intra-articular injections and physical therapy. She elected to undergo left total knee arthroplasty due to continued pain and decreased quality of life. Radiographs showed severe end stage osteoarthritis of the knee with bone on bone contact. Informed consent was obtained from the patient. She understood the risks of surgery included but were not limited to: bleeding, infection, damage to nearby structures, intraoperative fracture, nerve palsy, failure of the hardware, early loosening, knee stiffness or loss of motion, anesthesia complications, stroke, heart attack , blood clot and . She wished to proceed. Intra-Operative Findings: Intraoperatively the patient was noted to have severe loss of cartilage in all 3 compartments of the knee. Description of the Procedure: JASSON JUAREZ was identified in the preanesthesia unit. Her left knee was marked as the correct operative side. Informed consent was signed and placed in the chart. The patient was taken to the operating room and placed under anesthesia without complication. A huerta catheter was placed. A tourniquet was placed on the left thigh. The left lower extremity was prepped and draped in the usual sterile fashion. Preoperative time-out was made to correctly identify the patient, side and site. Appropriate intraoperative antibiotics were given within one hour of incision. Tourniquet was inflated. A midline incision was made and carried sharply down to the extensor mechanism. A new 10 blade was used to make a standard medial parapatellar arthrotomy. The patella was subluxed laterally. Electrocautery was used to dissect soft tissue off the superomedial tibia to the midsagittal plane. The knee was flexed up. The anterior horn of the lateral meniscus and the ACL were sharply incised. A drill was used to enter the distal femur. The intramedullary distal femoral cutting guide was pinned on the distal femur. The oscillating saw was used to make the distal femoral cut. The external rotation guide was pinned on the distal femur and the distal femur was sized to a size 4. The size 4 multi-cutting jig was pinned on the distal femur. The oscillating saw was used to make the appropriate 4 chamfer cuts. Next the PCL was completely released. The extramedullary tibial cutting guide was pinned on the proximal tibia and the oscillating saw was used to make the proximal tibial cut perpendicular to the mechanical axis of the tibia. The bone was carefully removed. The knee was brought out into full extension. The spacer block was placed and had excellent fit with the knee in full extension. The medial and lateral ligaments were well balanced. The flexion and extension gaps were well balanced. The knee was flexed up. Lamina order entry specialist was placed both medially and laterally. Any remaining meniscus was removed with electrocautery. Curved osteotome was used to remove any posterior osteophytes. The tibial tray and drop gely were placed and confirmed a satisfactory tibial cut. The size 4 left narrow femoral trial was impacted onto the distal femur. This trial had excellent fit and stability. The box for the posterior stabilized implant was prepared using a box cut osteotome and a reamer. Next a tibial tray trial and 9 mm insert trial was placed. The knee was taken through a range of motion and had full extension to 130 degrees of flexion. Patellofemoral tracking was satisfactory. The patella was inverted and sized to a size 32. Three peg holes were drilled through the size 32 drill guide. The trial patella was placed and the knee was taken through a range of motion. There was satisfactory patellofemoral tracking. All trials were removed. The tibia was subluxed anteriorly and sized to a size 3. The proximal tibial was prepared with a size 3 keel punch. All bony cut surfaces were irrigated with sterile saline and dried. Final implants were cemented into place starting with the tibia, followed by the femur, and last the patella. A 11 mm insert trial was placed and the knee was brought into full extension. Tourniquet was turned down and the knee was copiously irrigated with sterile saline. Electrocautery was used to obtain meticulous hemostasis. Once the cement had fully cured, the insert trial was removed. Any excess cement was removed from around the hardware and capsule. Final insert chosen was a 11 mm posterior stabilized Dom II articular insert size 3-4. Stability of the insert was checked and noted to be stable. The extensor mechanism was closed using number 1 vicryls. The rest of the incision was closed in a layered fashion using 0 and 2-0 vicryls. The skin was closed using 3-0 nylon suture. Sterile xeroform, 4x4s and webril were used to cover the incision. Andres wrap and cold pack were used to cover the dressings. The patients anesthesia was reversed without difficulty. She was taken to the PACU in stable condition. Intended weight-bearing will be as tolerated.
[2019-05-10] MEDS ORDERED: diPHENhydraMINE IV* 50 MG/ML 1 ml VIAL (BENADRYL) IV PRN (16:53)
[2019-05-10] MEDS ORDERED: Polyethylene Glycol 3350* 17 GM PACKET PO PRN (16:53)
[2019-05-10] MEDS ORDERED: Magnesium Hydroxide LIQ* 30 ML UDC PO PRN (16:53)
[2019-05-10] MEDS ORDERED: oxyCODONE/Acetamin 5/325 MG* TAB PO PRN (16:53)
[2019-05-10] MEDS ORDERED: Ondansetron ODT TAB* 4 MG PO PRN (16:53)
[2019-05-10] MEDS ORDERED: Cyclobenzaprine TAB* 10 MG PO PRN (16:53)
[2019-05-10] MEDS ORDERED: oxyCODONE TAB* 5 MG TAB PO PRN (16:53)
[2019-05-10] MEDS ORDERED: Temazepam CAP* 15 MG PO PRN (16:53)
[2019-05-10] MEDS ORDERED: diPHENhydraMINE PO* 25 MG PO PRN (16:53)
[2019-05-10] MEDS ORDERED: Morphine INJ* 2 MG/ML 1 ML SYRINGE (TWO MG - NEW SYRINGE VERSION) IV PRN (16:53)
[2019-05-10] MEDS ORDERED: traMADol TAB* 50 MG PO PRN (16:53)
[2019-05-10] MEDS ORDERED: Lactated Ringers 1000 ML Bag* 1,000 ML IV SCH (17:00)
[2019-05-10] MEDS: Docusate CAP* 100 MG PO SCH (21:31)
[2019-05-10] MEDS: Acetaminophen TAB* 325 MG PO SCH (21:37)
[2019-05-10] MEDS: Magnesium Hydroxide LIQ* 30 ML UDC PO SCH (21:37)
[2019-05-10] MEDS: ceFAZolin 1 GM ADVAN(*) 1 GM in NS 0.9% 50 ML* 50 ML IVPB SCH (22:29)
[2019-05-11] MEDS ORDERED: Levothyroxine TAB* 50 MCG TAB PO SCH (06:00)
[2019-05-11] MEDS: ceFAZolin 1 GM ADVAN(*) 1 GM in NS 0.9% 50 ML* 50 ML IVPB SCH ×2 (06:05→14:17)
[2019-05-11] MEDS: Acetaminophen TAB* 325 MG PO SCH ×2 (06:11→12:17)
[2019-05-11 06:30] LABS: Hematocrit 38 % (35-47); Hemoglobin 13.1 g/dL (12.0-16.0); Mean Platelet Volume 8.2 fL (7.4-10.4); Platelet Count 184 10^3/uL (150-450)
[2019-05-11 06:56] LABS: BUN/Creatinine Ratio 16.7 (8-20); Calcium 9.2 mg/dL (8.6-10.3); EGFR African American 86.7 (>60); EGFR Non-African American 71.6 (>60); Potassium 4.5 mmol/L (3.5-5.0)
[2019-05-11] MEDS: Magnesium Hydroxide LIQ* 30 ML UDC PO SCH (08:10)
[2019-05-11] MEDS: oxyCODONE/Acetamin 5/325 MG* TAB PO PRN ×2 (08:10→12:18)
[2019-05-11] MEDS: Docusate CAP* 100 MG PO SCH (08:10)
--- NOTE | 2019-05-11 08:11 | PN ---
Progress Note - Progress Note Date of Service: 05/11/19 SOAP: Subjective: POD #1 Left TKA. Doing well, pain well controlled. Denies CP/SOB, f/c, n/v. Objective: Vital Signs: Temp Pulse Resp BP Pulse Ox 98.1 F 61 18 103/56 99 05/10/19 23:29 05/11/19 03:02 05/11/19 08:05 05/11/19 03:02 05/11/19 03:02 Gen: A&Ox3, NAD at rest sitting in bed LLE: Dressing C/D/I. Thigh and calf soft, NT. +f/e at ankle and MTPs. N/V intact Labs: Laboratory Results - last 24 hr 05/11/19 05/11/19 06:09 06:09 Hgb 13.1 Hct 38 Plt Count 184 MPV 8.2 Sodium 140 Potassium 4.5 Chloride 105 Carbon Dioxide 29 Anion Gap 6 BUN 13 Creatinine 0.78 Est GFR ( Amer) 86.7 Est GFR (Non-Af Amer) 71.6 BUN/Creatinine Ratio 16.7 Glucose 135 H Calcium 9.2 Assessment: POD #1 Left TKA Plan: PT/OT today Continue current pain medications Eliquis for DVT ppx Possible d/c later today if she does well with PT
[2019-05-11] MEDS ORDERED: Vitamin THERAPEUTIC TAB PO SCH (09:00)
[2019-05-11] MEDS ORDERED: Apixaban* 2.5 MG TAB PO SCH (09:00)
[2019-05-11 12:02] VITALS: BP 102/59
--- NOTE | 2019-05-11 12:16 | DS ---
Orthopedic Discharge Summary - Discharge Summary Date of Admission:05/10/19 Date of Discharge: 05/11/19 Date of Surgery: 05/10/19 Attending Orthopedic Provider: Tiffany Long MD Pre-operative Diagnosis: Left knee osteoarthritis Operative Procedure: Left total knee arthroplasty Disposition of Patient: Home Condition of Patient: Stable History: JASSON JUAREZ is a 79 year old F with years of increasingly severe left knee pain. Patient has failed conservative management and has elected to undergo a left total knee replacement Hospital Course: JASSON was admitted to [facility] on 05/10/19. Patient underwent a left total knee arthroplasty without complication followed by a brief recovery in PACU and transfer to the Short Stay Surgical Unit in stable condition. Physical therapy also participated in this patients care. Post -op day 1: patient was alert and in no acute distress. Dressing was changed, incision was clean, dry and intact. Operative extremity dorsiflexion and plantarflexion intact, sensation intact to light touch distally, DP2+. Patient was deemed to be medically and orthopedically stable for discharge. Physical therapy goals were met. Home Medications Medication Instructions Recorded Confirmed Type Levothyroxine TAB* [Synthroid TAB*] 50 mcg PO QAM 08/25/15 05/10/19 History Multivitamin [Multivitamins] 1 cap PO QAM 04/29/19 05/10/19 History Apixaban* [Eliquis*] 2.5 mg PO BID tab 05/11/19 Rx Docusate CAP* [Colace Cap*] 100 mg PO BID cap 05/11/19 Rx oxyCODONE/Acetamin 5/325 MG* 1 tab PO Q4H PRN tab 05/11/19 Rx [Percocet 5/325 TAB*] oxyCODONE/Acetamin 5/325 MG* 2 tab PO Q4H PRN tab 05/11/19 Rx [Percocet 5/325 TAB*] Discharge Instructions following Orthopedic Surgery: Activity: * Weight Bearing as tolerated * Continue physical therapy and occupational therapy exercises as shown Wound care: * OK to shower on post-op day 3, no bathing, swimming, or submerging wound. * Use gentle soap, pat dry. Cover with gauze, CALLIE wrap or tape. * Visiting home nurse to do wound checks. Call Orthopedic office for: * Increased drainage * Redness * Increased pain * Fever Go to ER with shortness of breath or chest pain. Diet: * Regular diet * Increase fluids and fiber to prevent constipation. * Continue to use stool softeners, call office if no bowel motion within 48 hours. Medications See Home Medication List in your packet for medications that you should take after discharge. DVT Prophylaxis: Eliquis Dosin.5 mg, 1 tab every 12 hours x 30 days Pain Control: Percocet Dosin/325 mg 1-2 tabs by mouth every 4-6 hours as needed for pain. Maximum of 10 tabs per day. Please note that Percocet contains Tylenol (acetaminophen). Maximum daily dose of Tylenol is 4000 mg from all sources. Antibiotics are required prior to any dental work. FOLLOW UP: Follow up with Dr. Long Within 10-14 days, call for appointment Please call our office with any questions or concerns ([phone])
[2019-05-12] MEDS ORDERED: Bisacodyl SUPP* 10 MG SUPP PR PRN (16:53)
== END 2019-05-11 15:50 | disposition home health service (06) | DRG 470 ==
LOC: AA 11:38 → SSU 20:50
PROVIDERS: ADMIT Orthopaedic Surgery Adult Reconstructive Orthopaedic Surgery; ATTEND Orthopaedic Surgery Adult Reconstructive Orthopaedic Surgery
PROC: 0SRD0J9 Replacement of Left Knee Joint with Synthetic Substitute, Cemented, Open Approach (ICD-10-PCS; principal; 2019-05-10 14:00)
DX: M17.12 Unilateral primary osteoarthritis, left knee (principal); E03.9 Hypothyroidism, unspecified; M25.462 Effusion, left knee; Z79.82 Long term (current) use of aspirin; Z79.1 Long term (current) use of non-steroidal anti-inflammatories (NSAID); Z79.899 Other long term (current) drug therapy; Z83.3 Family history of diabetes mellitus; M25.762 Osteophyte, left knee
CPT/HCPCS: 36415; 80048; 85014; 85018; 85049; 88305; 88311; A9270-GY; C1776; G8978-GP-CJ; G8979-GP-CI; J0690; J1100; J1170; J2250; J2405; J2704; J2795; J3010; J3490

== ENCOUNTER 2020-04-28 05:41 | Inpatient (IN) ==
[2020-04-28] MEDS ORDERED: Buffered Lidocaine 1% SYRIN 1 ml INTRADERM ONE ×2 (06:00→06:11)
[2020-04-28] MEDS ORDERED: Sodium Citrate/Citric Acid LIQ 15 ML UDC PO ONE (06:00)
[2020-04-28] MEDS ORDERED: Lactated Ringers 1000 ml BAG 1,000 ML IV SCH ×2 (06:00→11:00)
[2020-04-28] MEDS ORDERED: Famotidine IV 10 MG/ML 2 ml VIAL (20 mg) IV ONE (06:00)
[2020-04-28] MEDS ORDERED: Sodium Citrate/Citric Acid LIQ 15 ML UDC ONE (06:10)
[2020-04-28] MEDS ORDERED: Famotidine IV 10 MG/ML 2 ml VIAL (20 mg) ONE (06:11)
[2020-04-28] MEDS ORDERED: ceFAZolin 2 GM PREMIX 2 GM/50 ML BAG ONE (06:11)
[2020-04-28] MEDS ORDERED: Phenylephrine 40 mcg/mL 10mL (400mcg) SYRINGE ONE ×2 (06:27→06:29)
[2020-04-28] MEDS ORDERED: Rocuronium 50 mg VIAL 10 mg/ml 5 ml VIAL (50 mg) ONE (06:27)
[2020-04-28] MEDS ORDERED: Midazolam 5 mg/5 ml VIAL 1 mg/ml 5 ml VIAL (5 mg) ONE (06:27)
[2020-04-28] MEDS ORDERED: Sterile Water for Inj 10 ML ONE (06:28)
[2020-04-28] MEDS ORDERED: EPHEDrine (Pressors) 50 MG/ML VIAL ONE (06:28)
[2020-04-28] MEDS ORDERED: Bupivacaine 0.5% SDV PF 30ML VIAL ONE (06:29)
[2020-04-28] MEDS ORDERED: Lidocaine 1% MPF 5 ML VIAL ONE (07:11)
[2020-04-28] MEDS ORDERED: ROPIVACAINE 5 MG/ML 30 ML BTL (0.5%) ONE ×2 (07:11→07:17)
[2020-04-28] MEDS ORDERED: Phenylephrine IV 10 MG/ML 1 ml VIAL ONE (08:28)
[2020-04-28] MEDS ORDERED: Naloxone 0.4 mg VIAL 0.4 mg/ml 1 ml VIAL IV PRN (08:50)
[2020-04-28] MEDS ORDERED: fentaNYL 100 mcg/2 ml 50 MCG/ML VIAL IV PRN (08:50)
[2020-04-28] MEDS ORDERED: Ondansetron 4 mg VIAL 2 MG/ML 2 ml VIAL IV PRN ×2 (08:50→10:01)
[2020-04-28] MEDS ORDERED: HYDROmorphone 1 MG/1 ML SYRINGE IV PRN (08:50)
[2020-04-28] MEDS ORDERED: Magnesium Hydroxide LIQ 30 ML UDC PO PRN (10:01)
[2020-04-28] MEDS ORDERED: diPHENhydraMINE 25 mg TAB PO PRN (10:01)
[2020-04-28] MEDS ORDERED: diPHENhydraMINE IV 50 MG/ML 1 ml VIAL (BENADRYL) IV PRN (10:01)
[2020-04-28] MEDS ORDERED: oxyCODONE/Acetamin 5/325 mg TAB PO PRN ×2 (10:01)
[2020-04-28] MEDS ORDERED: Ondansetron ODT 4 mg TAB 4 MG TAB PO PRN (10:01)
[2020-04-28] MEDS ORDERED: Morphine 2 MG/ML SYRINGE IV PRN (10:01)
[2020-04-28] MEDS ORDERED: Lactulose 30 ml UDC PO PRN (10:01)
[2020-04-28] MEDS: ceFAZolin 1 GM ADVAN 1 GM in NS 0.9% 50 ML 50 ML IVPB SCH ×2 (15:58→23:58)
[2020-04-28] MEDS: Fluticasone NASAL SPRAY 50MCG 16 gm SPRAY BTL INTRANASAL SCH (22:07)
[2020-04-28] MEDS: Magnesium Hydroxide LIQ 30 ML UDC PO SCH (22:07)
[2020-04-29] MEDS ORDERED: Polyethylene Glycol 3350 17 GM PACKET PO PRN (00:01)
[2020-04-29 06:13] LABS: Hematocrit 33 % (35-47); Hemoglobin 11.1 g/dL (12.0-16.0); Mean Platelet Volume 8.6 fL (7.4-10.4); Platelet Count 147 10^3/uL (150-450)
[2020-04-29 06:33] LABS: Calcium 8.9 mg/dL (8.6-10.3); EGFR African American 72.3 (>60); EGFR Non-African American 59.8 (>60)
[2020-04-29] MEDS: Magnesium Hydroxide LIQ 30 ML UDC PO SCH (08:21)
[2020-04-29] MEDS: ceFAZolin 1 GM ADVAN 1 GM in NS 0.9% 50 ML 50 ML IVPB SCH (08:22)
[2020-04-29] MEDS: Fluticasone NASAL SPRAY 50MCG 16 gm SPRAY BTL INTRANASAL SCH (08:26)
[2020-04-29] MEDS ORDERED: Vitamin THERAPEUTIC TAB PO SCH (09:00)
[2020-04-29 12:05] VITALS: BP 112/60
== END 2020-04-29 13:44 | disposition home health service (06) | DRG 470 ==
LOC: AA 05:41 → SSU 11:51
PROVIDERS: ADMIT Orthopaedic Surgery Adult Reconstructive Orthopaedic Surgery; ATTEND Orthopaedic Surgery Adult Reconstructive Orthopaedic Surgery